=== PATIENT | female | born 2005 | race Caucasian/White ===

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

== ENCOUNTER 2024-09-29 21:23 | Emergency (ER) | payer OTHER, SELFPAY ==
[2024-09-29 21:25] VITALS: BP 123/64; PULSE 65; RESP 18; TEMP 36.6; O2SAT 100
--- NOTE | 2024-09-29 22:17 | ED.WOUNDLAC ---
HPI - Wound/Laceration General Chief Complaint: Wound/Laceration Stated Complaint: L finger lac Time Seen by Provider: 09/29/24 21:41 Source: patient Mode of arrival: ambulatory Limitations: no limitations History of Present Illness HPI narrative: This is a 19-year-old female that presents emergency department for laceration to the left middle finger. Reports she was unable to get the bleeding to stop which prompted her to be seen. Unsure of last tetanus vaccination. Related Data Allergies Allergy/AdvReac Type Severity Reaction Status Date / Time No Known Allergies Allergy Verified 09/29/24 21:23 Review of Systems Review of Systems: CONSTITUTIONAL: Denies fever SKIN: Reports laceration MUSCULOSKELETAL: Denies joint pain, or myalgia. All systems reviewed & are unremarkable except as noted in HPI and below PMFSH Past Medical History Medical History (Updated 09/29/24 @ 22:19 by Katharine Mcknight PA-C) No active medical problems Family History Family History Other No active medical problems Social History Social History (Updated 03/29/20 @ 10:43 by India Bowman, DIGITAL ACCOUNT DIRECTOR) Living arrangements: with family Exam Narrative: GENERAL: Well-appearing, well-nourished, and in no acute distress. HEAD: Normocephalic, atraumatic. EYES: EOMI. EXTREMITIES: Normal range of motion. No edema. Left third finger distal phalanx with small (0.5cm) avulsion injury to the dorsal aspect SKIN: Warm, dry, no rash. NEURO: No focal deficits. Alert and oriented x3. PSYCH: Normal mood and affect Course Course Emergency Course: Patient educated on further wound care Vital Signs Vital signs: Vital Signs Temperature 97.8 F 09/29/24 21: Pulse Rate 65 09/29/24 21:25 Respiratory Rate 18 09/29/24 21:25 Blood Pressure 123/64 09/29/24 21:25 Pulse Oximetry 100 09/29/24 21:25 Oxygen Delivery Room Air 09/29/24 21:25 Temperature 97.8 F 09/29/24 21:25 Pulse Rate 65 09/29/24 21:25 Respiratory Rate 18 09/29/24 21:25 Blood Pressure 123/64 09/29/24 21:25 Pulse Oximetry 100 09/29/24 21:25 Oxygen Delivery Room Air 09/29/24 21:25 Procedures Laceration Laceration 1: Date: 09/29/24 Time: 22:37 Site: hand Side (If applicable): left Size (cm): 0.5 Description: other (Avulsion) Depth: simple, single layer Pre-repair: irrigated ====== Skin Level ====== ====== Subcutaneous Layer ====== ====== Muscle Layer ====== ====== Tendon Layer ====== Dressing: Bleeding controlled with Surgicel and wound bandaged MDM - Wound/Laceration MDM Narrative Medical decision making narrative: Patient presents the emergency department for avulsion of skin of the left 3rd finger. Bleeding controlled with Surgicel. Patient updated on tetanus vaccination. Educated on further wound care. She is to follow up with primary provider. She was given warnings to return to the ER Differential Diagnosis Differential diagnosis: Likely laceration and avulsion of skin Critical Care Time Critical Care Time Critical Care Time: No Discharge Plan Discharge Clinical Impression: Avulsion of skin Patient Disposition: Home, Self-Care Condition: Stable Instructions: Antibiotic Form, Skin Avulsion (ED) Additional Instructions: Return to the emergency department if you experience fever, redness or swelling of your wound, abnormal drainage from your wound, or any other symptoms that are concerning to you. Leave the bottom layer of gauze on until it falls off. When it does apply antibiotic ointment daily and clean with mild soap and water. Take oral antibiotic as prescribed Follow-up with your primary care doctor for wound check. Dr. Graves is our primary continuous mining machine lode miner if needed Patient Language: Malay Prescriptions: New cephalexin 500 mg capsule 500 mg PO Q8H 3 Days Qty: 9 0RF No Action naproxen [Naprosyn] 500 mg tablet 500 mg PO BID PRN (Reason: pain) Qty: 30 0RF cephalexin [Keflex] 500 mg capsule 500 mg PO Q8H Qty: 30 0RF Follow-up/Referrals: PHYSICIAN NOT ON STAFF,NONSTAFF [Primary Care Provider] - Michael Graves MD [Physician] -
[2024-09-29] MEDS: CELLULOSE OXIDIZED 2 x 3 INCH 1 PKT XX (22:18)
[2024-09-29] MEDS: TETANUS,DIPHTHERIA,AC PERTUSSIS ADULT (0.5 ML) BOOSTRIX IM (22:21)
[2024-09-29 22:52] VITALS: BP 110/75; PULSE 86; RESP 16; TEMP 36.6; O2SAT 98
== END 2024-09-29 22:53 | disposition home or self-care (01) ==
PROVIDERS: Emergency Provider Physician Assistant
DX: S61.213A Laceration without foreign body of left middle finger without damage to nail, initial encounter (principal); Z23 Encounter for immunization; W26.0XXA Contact with knife, initial encounter
CPT/HCPCS: 12001; 90471; 90715; 99283